=== PATIENT | male | born 1975 | race Caucasian/White ===

== ENCOUNTER 2022-11-25 17:25 | Emergency (ER) | payer BC | END 2022-11-25 18:28 | disposition home or self-care (01) | LOC: MW.ED 17:25 | DX: S09.90XA Unspecified injury of head, initial encounter (principal); W11.XXXA Fall on and from ladder, initial encounter | CPT/HCPCS: 70450; 70450-26; 72125; 72125-26; 99283 ==

== ENCOUNTER 2023-06-16 09:16 | Day surgery (SDC) | payer BC ==
[~2023-06-16 09:16] MED LIST: Sodium Chloride 0.9% 10 ML Syringe FLUSH PRN; Sodium Chloride 0.9% 2.5 ML Syringe FLUSH PRN; Sodium Chloride 0.9% 20 ML SDV IV PRN
[2023-06-16] MEDS: Lactated Ringers 1,000 ML IV SCH (09:36)
[2023-06-16] MEDS ORDERED: propofoL 50 ML ONE (09:55)
== END 2023-06-16 11:00 | disposition home or self-care (01) ==
LOC: MW.SDS 09:16
PROVIDERS: ATTEND Surgery
DX: Z12.11 Encounter for screening for malignant neoplasm of colon (principal); I10 Essential (primary) hypertension; G47.30 Sleep apnea, unspecified; Z87.891 Personal history of nicotine dependence; Z79.899 Other long term (current) drug therapy
CPT/HCPCS: 45378; J2704; J7120